=== PATIENT | female | born 1955 | race Caucasian/White ===

== ENCOUNTER 2017-11-10 19:39 | Emergency (ER) | payer OTHER ==
[2017-11-10 21:49] LABS: Urine Appearance Clear; Urine Blood Negative (Negative); Urine Color Yellow; Urine Ketones Trace (Negative); Urine Protein Negative (Negative); Urine Specific Gravity 1.008 (1.010-1.030); Urine Urobilinogen Negative (Negative)
--- NOTE | 2017-11-10 22:13 | ED ---
Abdominal Pain/Female - HPI Summary HPI Summary: Patient just finished 7 days of Cipro yesterday for what she thought was an oncoming urinary tract infection started the medication while she was traveling at a conference did not see her primary care provider biggest complaint was dysuria no fevers chills back pain frequency urgency. Today patient comes to the emergency department with sensation of bladder spasms she describes as a spasm and burning in supra public she said this had in the past as well associated with urinary tract infection she is concerned because she just finished antibiotic and is concerned that she might need additional antibiotic - History of Current Complaint Chief Complaint: EDUrogenitalProblems Stated Complaint: CRAMPING UTI? Time Seen by Provider: 11/10/17 22:11 Hx Obtained From: Patient ?: No Onset/Duration: Sudden Onset, Lasting Days - 1, Still Present Severity Initially: Moderate Severity Currently: Moderate Pain Intensity: 8 Pain Scale Used: 0-10 Numeric Location: Suprapubic Radiates: No Aggravating Factor(s): Nothing Alleviating Factor(s): Nothing Associated Signs and Symptoms: Positive: Urinary Symptoms Allergies/Adverse Reactions: Allergies Allergy/AdvReac Type Severity Reaction Status Date / Time Sulfa (Sulfonamide Allergy Rash And Verified 11/10/17 19:46 Antibiotics) Itching PMH/Surg Hx/FS Hx/Imm Hx Previously Healthy: No Cardiovascular History: Reports: Hx Hypertension - Cancer History Hx Chemotherapy: No Hx Radiation Therapy: Yes Infectious Disease History: No Infectious Disease History: Denies: Traveled Outside the [place] in Last 30 Days - Family History Known Family History: Positive: None - Social History Occupation: Employed Full-time Lives: With Family Alcohol Use: None Hx Tobacco Use: No Review of Systems Constitutional: Negative Eyes: Negative ENT: Negative Cardiovascular: Negative Positive: Shortness Of Breath Gastrointestinal: Negative Genitourinary: Other Positive: dysuria, pain Musculoskeletal: Negative Skin: Negative Neurological: Negative Psychological: Normal All Other Systems Reviewed And Are Negative: Yes Physical Exam Triage Information Reviewed: Yes Vital Signs On Initial Exam: Initial Vitals Temp Pulse Resp BP Pulse Ox 97.9 F 120 16 181/81 96 11/10/17 19:43 11/10/17 19:43 11/10/17 19:43 11/10/17 19:43 11/10/17 19:43 Vital Signs Reviewed: Yes Appearance: Positive: Well-Appearing, No Pain Distress, Well-Nourished Skin: Positive: Warm, Skin Color Reflects Adequate Perfusion, Dry Eyes: Positive: Normal, EOMI, CALIN ENT: Positive: Normal ENT inspection, Hearing grossly normal. Negative: Trismus , Muffled voice, Hoarse voice Neck: Positive: Supple, Nontender Respiratory/Lung Sounds: Positive: Breath Sounds Present Cardiovascular: Positive: Normal, Pulses are Symmetrical in both Upper and Lower Extremities, Tachycardia - Patient reports she is anxious by having urinary tract infection Abdomen Description: Positive: No Organomegaly, Soft, Other: - supra pubic tenderness. Negative: CVA Tenderness (R), CVA Tenderness (L) Bowel Sounds: Positive: Present Neurological: Positive: Normal, Sensory/Motor Intact, Alert, Oriented to Person Place, Time Psychiatric: Positive: Normal AVPU Assessment: Alert - [place] Coma Scale Best Eye Response: 4 - Spontaneous Best Motor Response: 6 - Obeys Commands Best Verbal Response: 5 - Oriented Coma Scale Total: 15 Diagnostics - Vital Signs Vital Signs Temp Pulse Resp BP Pulse Ox 11/10/17 19:43 97.9 F 120 16 181/81 96 - Laboratory Lab Results: Lab Results 11/10/17 Range/Units 19:50 Urine Color Yellow Urine Appearance Clear Urine pH 6.0 (5-9) Ur Specific [place] 1.008 L (1.010-1.030) Urine Protein Negative (Negative) Urine Ketones Trace A (Negative) Urine Blood Negative (Negative) Urine Nitrate Negative (Negative) Urine Bilirubin Negative (Negative) Urine Urobilinogen Negative (Negative) Ur Leukocyte Esterase Negative (Negative) Urine Glucose Negative (Negative) Lab Statement: Any lab studies that have been ordered have been reviewed, and results considered in the medical decision making process. Abdominal Pain Fem Course/Dx - Course Course Of Treatment: pyridium, increase fluids, follow bladder spasms and HTN with Dr. Montes - Diagnoses Provider Diagnoses: Hypertension, poor control, Dysuria Is Visit Related: No Discharge - Discharge Plan Condition: Stable Disposition: HOME Patient Education Materials: Phenazopyridine (By mouth), Dysuria (ED), Hypertension (ED) Referrals: Tamara Montes MD [Primary Care Provider] - 2 Days
[2017-11-10] MEDS ORDERED: Phenazopyridine TAB* 100 MG PO ONE (22:43)
[2017-11-10 23:04] VITALS: BP 167/87
== END 2017-11-10 23:01 | disposition home or self-care (01) ==
LOC: ED 19:39
DX: R30.0 Dysuria (principal); I10 Essential (primary) hypertension; Z88.2 Allergy status to sulfonamides
CPT/HCPCS: 81003; 99282; A9270-GY